=== PATIENT | male | born 1970 | race Caucasian/White ===

== ENCOUNTER → 2020-10-01 | Day surgery (SDC) | payer BC ==
[~2020-10-01] MED LIST: LIPITOR20 MG PO; LISINOPRIL10 MG PO; NORVASC10 MG PO; PRILOSEC OTC20 MG PO
== END | disposition home or self-care (01) ==
LOC: OR 06:48
DX: D12.4 Benign neoplasm of descending colon (principal); K64.8 Other hemorrhoids; I10 Essential (primary) hypertension; E78.5 Hyperlipidemia, unspecified; K21.9 Gastro-esophageal reflux disease without esophagitis; J44.9 Chronic obstructive pulmonary disease, unspecified; F17.210 Nicotine dependence, cigarettes, uncomplicated; E66.9 Obesity, unspecified; Z68.41 Body mass index [BMI] 40.0-44.9, adult; Z79.899 Other long term (current) drug therapy
CPT/HCPCS: J1885; J2704; J7030